=== PATIENT | male | born 1985 | race Caucasian/White ===

== ENCOUNTER → 2020-06-07 07:55 | Outpatient (CLI) | payer OTHER, SELFPAY ==
--- NOTE | ~2020-06-07 | US_ITS ---
EXAMINATION: US abdomen limited DATE: 06/07/2020 08:19 INDICATION: Right upper quadrant pain and nausea TECHNIQUE: Multiple grayscale and Doppler ultrasound images of the abdomen were obtained. COMPARISON: None available FINDINGS: The head and and body of the pancreas are normal. The pancreatic tail is obscured by bowel gas. The liver demonstrates increased echogenicity, heterogenous echotexture, and decreased through t ransmission. No surface nodularity. Normal hepatopetal flow in the main portal vein. Hyperechoic foci in the gallbladder measure up to 5 mm and do not demonstrate posterior acoustic shadowing or enhance ment, likely polyps. There is no pericholecystic fluid or gallbladder wall thickening. The mildly dil ated common bile duct measures 7 mm. No common bile duct stone is seen. There was no sonographic Murp hy sign. IMPRESSION: 1. Mildly dilated common bile duct of unclear etiology. 2. Gallbladder polyps measuring up to 5 mm. Reviewed, dictated and finalized at location A.
== END ==
PROVIDERS: PCP Family Medicine; Visit Provider Physician Assistant
DX: R10.11 Right upper quadrant pain (principal); K82.4 Cholesterolosis of gallbladder
CPT/HCPCS: 76705

== ENCOUNTER 2020-07-26 00:30 | Outpatient (CLI) | payer OTHER, SELFPAY ==
[2020-07-26 18:12] LABS: SARS-CoV-2 RNA PCR Negative
== END 2020-07-26 00:31 | disposition home or self-care (01) ==
LOC: ANHCOVIDDT 00:30
PROVIDERS: PCP Family Medicine; Visit Provider Surgery
DX: Z01.812 Encounter for preprocedural laboratory examination (principal); Z20.828 Contact with and (suspected) exposure to other viral communicable diseases
CPT/HCPCS: 87635; C9803; U0003

== ENCOUNTER 2020-07-26 07:49 | Outpatient (CLI) | payer OTHER, SELFPAY ==
[2020-07-26 08:20] LABS: Alanine Aminotransferase 22 U/L (4-50); Albumin Level 4.7 g/dL (3.5-5.1); Alkaline Phosphatase 42 U/L (38-126); Amylase 95 U/L (30-110); Aspartate Amino Transferase 26 U/L (17-59); Bilirubin,Total 0.9 mg/dL (0.2-1.3); Lipase 238 U/L (23-300)
== END 2020-07-26 07:50 | disposition home or self-care (01) ==
LOC: ANHSURGERY 07:51
PROVIDERS: PCP Family Medicine; Visit Provider Surgery
DX: Z01.812 Encounter for preprocedural laboratory examination (principal); K81.1 Chronic cholecystitis
CPT/HCPCS: 36415; 80076; 82150; 83690; 86850; 86900; 86901

== ENCOUNTER 2020-07-28 02:41 | Day surgery (SDC) | payer OTHER, SELFPAY ==
[2020-06-29 14:00] VITALS: BMI 26.7
--- NOTE | 2020-07-27 14:46 | WPDANESEPPF ---
Anes - Initial Pre Proc Eval Procedure: Operation Date: 07/28/20 08:30 Proposed Procedures p Laparoscopic Cholecystectomy - Benji Kebede MD Date/Time: 07/27/20 14:46 Surgeon: Benji Kebede MD Pre Op Diagnosis: Chronic Cholecystitis Patient Data Age: 35 Gender: M Height: 1.93 m Weight: 99.79 kg Allergies Allergy/AdvReac Type Severity Reaction Status Date / Time No Known Allergies Allergy Unknown Unverified 07/28/20 07:36 Home Medications Medication Instructions Recorded Confirmed Type multivitamin 1 tablet PO DAILY 06/29/20 07/28/20 History Patient hx anesthesia problems: none Family hx anesthesia problems: none PMFSH Past Medical History Medical History Hyperlipidemia borderline Migraine Surgical History Surgical History H/O hernia repair Hx laparoscopic cholecystectomy Hx of tonsillectomy Family History Family History Mother Hypertension Father Family history of diabetes mellitus in first degree relative Grandparent Family history of malignant neoplasm of breast Other Cerebrovascular accident Social History Social History Smoking status: Never smoker Alcohol intake: current Drinks per week: 8 Substance use: unknown 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 Gender identity (if verbalized by the patient): Male Spiritual care concerns: No Anes - Eval Final PreProcedure Day of Procedure 07/27/20 14:46 Patient weight: overweight Heart: regular rate and rhythm Lungs: clear to auscultation and normal air movement Airway: Mallampati scale class II Neurological: alert and oriented Last oral intake: >/= 8 hours ASA classification: II Emergent: no Anesthetic plan: proceed Anesthesia type and monitoring: general ETT and standard monitoring Informed Consent: The patient's anesthetic plan and its attendant risks and benefits were discussed with the patient/family/POA. Questions were solicited and answers provided to the satisfaction of the patient/family/POA.
[2020-07-28] VITALS (8 sets, daily range): BP systolic 109–127; BP diastolic 68–86; PULSE 46–67; RESP 13–22; TEMP 36.2–36.4; O2SAT 98–100
--- NOTE | 2020-07-28 06:42 | PM.SD ---
Same Day Admit/Disch: HPI History of Present Illness Chief complaint: Chronic Cholecystitis Narrative: Ernst Coreas is a 35 year old male With complaints of epigastric and right upper quadrant abdominal pain that comes on particularly after eating greasy foods or drinking beer or wine. He has had the symptoms for over 2 years but in the last few months they have become much worse. In May he had an ultrasound which suggested several gallbladder polyps. He also has a very significant family history of gallbladder disease in both his parents, multiple siblings and his grandparents. He is taken to surgery today for laparoscopic cholecystectomy for chronic cholecystitis. 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 Gender identity (if verbalized by the patient): Male Spiritual care concerns: No Same Day Admit/Disch: Med Pre-admit Medications Home Medications Medication Instructions Recorded Confirmed Type multivitamin 1 tablet PO DAILY 06/29/20 07/28/20 History hydrocodone-acetaminophen 1 - 2 tablet PO Q6H PRN #7 tablet 07/28/20 Rx ketorolac 10 mg PO Q6H 4 Days #16 tablet 07/28/20 Rx Exam Const: General: comfortable, no acute distress, alert and awake HENMT: Head: normocephalic and atraumatic Mouth: Yes Normal oral and palatal mucosa present Eyes: Conjunctivae: conjunctivae normal Pupils: Equal, round and reactive pupils present EOM: EOMs intact bilaterally Neck: Neck: normal visual inspection, no lymphadenopathy and nontender Resp: Effort & Inspection: normal respiratory effort Auscultation: clear to auscultation bilaterally Cardio: Rate: regular rate Rhythm: regular rhythm Heart sounds: no gallops, no murmurs and no rubs GI: Inspection: non-distended GI Palp: Yes Soft to palpation, No Tenderness to palpation present (GI), No Hepatomegaly present and No Splenomegaly present Skin: Lesions: no lesions Rashes: no rashes Neuro: General: no focal motor deficits and CN's II-XI intact bilaterally Cranial nerves: Yes Equal, round and reactive pupils present, Yes Bilaterally intact EOM present, Yes facial symmetry and Yes Midline tongue present Speech: normal speech Motor exam (neuro): 5/5 motor strength present throughout and Motor abnormalities not present Extrem: General: no clubbing, cyanosis or edema and edema Psych: Affect: normal affect Thought process: Normal thought process present Insight: Good insight present (Psych) DS: Summary Time Spent with Patient Time attestation: Total time spent providing and/or coordinating discharge services: DS: Admitting Diagnosis Admitting Diagnosis Admitting Diagnosis: Chronic Cholecystitis-- Plan to proceed with laparoscopic cholecystectomy under general anesthesia as an outpatient. The procedure the risks the benefits have been discussed with the patient. All questions were answered. He understands and agrees to go ahead. DS: Discharge Diagnosis Discharge Diagnosis (1) Chronic cholecystitis: Code(s): K81.1 - Chronic cholecystitis Status: Acute Discharge Plan Discharge Patient Disposition: Home, Self-Care Discharge Instructions: 1. May shower the day after surgery over incis
--- NOTE | 2020-07-28 06:45 | WPDHPUPDATE1 ---
History and Physical Update Update Date/Time: 07/28/20 06:45 History and Physical has been reviewed, including an updated exam of the patient. There are NO changes in the patient's condition. Risks, benefits, and alternatives have been discussed and questions answered. Patient agrees to proceed with procedure.
[2020-07-28] MEDS: ACETAMINOPHEN 500 MG TABLET 1000 MG PO (07:40)
[2020-07-28] MEDS: LACTATED RINGERS 1,000 ML 30 ML IV CONT (07:44)
[2020-07-28] MEDS: KETOROLAC 15 MG/ML VIAL (*BKC) IV PUSH (07:45)
[2020-07-28] MEDS: ceFAZolin 2 GM/D5W 50 ML 2 GM/50 ML BAG IVPB (08:34)
[2020-07-28] MEDS: BUPIVACAINE/EPINEPHRINE 0.5% 10 ML VIAL 20 ML INFILTRATE (09:07)
--- NOTE | 2020-07-28 09:32 | PM.PROC ---
Procedure Note - Detailed Date of procedure: 07/28/20 Pre-op diagnosis: Chronic Cholecystitis Chronic cholecystitis Post-op diagnosis: same Procedure performed: Laparoscopic cholecystectomy Description of procedure: The patient was taken to surgery and induced into general anesthesia. The abdomen was prepped and draped. Trocars were placed in the usual fashion using 0.5% Marcaine with epinephrine and applied Medical optical trocars. A 5 millimeter camera was used. The gallbladder was retracted anterosuperiorly. Traction was placed on the infundibulum. The cystic duct and cystic artery were dissected out very clearly. The gallbladder was dissected off the liver at its lower 3rd. Critical view was achieved. We securely clipped and divided the cystic duct and cystic artery. The gallbladder was then further retracted so that the peritoneal attachments to the liver could be divided. Once the gallbladder was freed entirely, it was placed in an Endo-Catch bag and retrieved through the 10 11 epigastric trocar site. The epigastric trocar was then replaced. We reviewed the right upper quadrant. All looked good with no evidence of bleeding or bile leakage. We evacuated CO2 and removed the trocar sleeves. Skin wounds were closed with subcuticular 4 O Monocryl skin suture. The wounds were dressed with Exofin surgical adhesive. Patient was awakened and taken to recovery in good condition. Sponge and needle counts were correct x2. Anesthesia: GETA and local (0.5% Marcaine with epinephrine) Surgeon: Benji Kebede MD Tab Cutting Machine Operator: Francis Merchant Estimated blood loss (mL): 5 Drains: No Packing: No Pathology: yes (Gallbladder) Complications: None Condition: stable Disposition: PACU Findings: Minimal chronic inflammation, no gallstones noted. No biliary ductal dilatation, no liver abnormalities.
[2020-07-28] MEDS: fentaNYL CITRATE INJ (*CRX) 100 MCG/2 ML VIAL 25 MCG IV PUSH ×2 (10:07→10:13)
[2020-07-28] MEDS: oxyCODONE HCL (*CRX) 5 MG TAB IR PO (10:51)
== END 2020-07-28 11:25 | disposition home or self-care (01) ==
PROVIDERS: PCP Family Medicine; Visit Provider Surgery
PROC: 0FT44ZZ Resection of Gallbladder, Percutaneous Endoscopic Approach (ICD-10-PCS; CPT 47562; principal; 2020-07-28 08:30)
DX: K81.1 Chronic cholecystitis (principal)
CPT/HCPCS: 47562; 88304; A9270; C1713; J0690; J1100; J1885; J2250; J2405; J2704; J2710; J3010; J7030; J7120

== ENCOUNTER 2024-10-23 12:33 | Emergency (ER) | payer OTHER, SELFPAY ==
[2024-10-23 12:46] VITALS: BP 133/105; PULSE 104; RESP 16; TEMP 37.7; O2SAT 99
--- NOTE | 2024-10-23 13:23 | ED.URI ---
HPI - URI/Sore Throat General Chief Complaint: Upper Respiratory Infection Stated Complaint: cold/flu symtoms Source: patient and RN notes reviewed Mode of arrival: ambulatory Limitations: no limitations History of Present Illness HPI Narrative: 39-year-old male presented for complaint of sore throat, body aches, sinus pressure/congestion, cough, fever/chills. Onset 2 days. Denies sob, wheezing, n/v/d. Taking Sudafed and ibuprofen for symptoms. MD elicited complaint: cough Related Data Home Medications ?Medication ?Instructions ?Recorded ?Confirmed ?Last Taken ?Type multivitamin 1 tablet PO DAILY 06/29/20 08/09/20 3 Days Ago History ~07/25/20 Allergies Allergy/AdvReac Type Severity Reaction Status Date / Time No Known Allergies Allergy Unknown Verified 08/09/20 13:21 Review of Systems Review of Systems: CONSTITUTIONAL: Endorses malaise, chills, sweats, fever EYES: Denies visual changes, redness, or discharge ENT: Reports rhinorrhea, congestion, otalgia, sore throat CARDIOVASCULAR: Denies chest pain, palpitations, edema RESPIRATORY: Reports cough, post nasal drainage. Denies dyspnea GASTROINTESTINAL: Denies abdominal pain, nausea, vomiting, diarrhea MUSCULOSKELETAL: Endorses myalgia PMFSH Past Medical History Medical History Hyperlipidemia borderline Migraine Surgical History Surgical History Hx laparoscopic cholecystectomy 07/28/2020 H/O hernia repair Hx of tonsillectomy Family History Family History Mother Hypertension Father Family history of diabetes mellitus in first degree relative Grandparent Family history of malignant neoplasm of breast Other Cerebrovascular accident Social History Social History Smoking status: Never smoker Alcohol intake: current Drinks per week: 8 Substance use: unknown Living arrangements: with family Occupation/Education: occupation 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 TM pearly [place]brook with dull light reflex bilaterally; no tragal tenderness. Oropharynx not erythematous without lesions or exudate, tonsils absent; no drooling, no hoarseness, no trismus, uvula midline. No tripod positioning, muffled voice, soft palate or pharyngeal wall bulging NECK: Supple. No lymphadenopathy CHEST: Clear to auscultation, breath sounds equal. HEART: Regular rate and rhythm. No murmur heard. SKIN: Warm, dry, no rash. NEURO: Alert and oriented x3. PSYCH: Normal mood and affect Course Course Emergency Course: Patient is aware of diagnosis, understands and agrees to treatment plan. Anticipatory guidance given. Patient agrees to follow-up as directed and is aware of reasons to seek care at the emergency department. Portions of this record may have been created with voice recognition software Level of Care: Express Care Visit Vital Signs Vital signs: Vital Signs Temperature 100 F H 10/23/24 12:46 Pulse Rate 104 H 10/23/24 12:46 Respiratory Rate 16 10/23/24 12:46 Blood Pressure 133/105 H 10/23/24 12:46 Pulse Oximetry 99 10/23/24 12:46 Temperature 100 F H 10/23/24 12:46 Pulse Rate 104 H 10/23/24 12:46 Respiratory Rate 16 10/23/24 12:46 Blood Pressure 133/105 H 10/23/24 12:46 Pulse Oximetry 99 10/23/24 12:46 reviewed MDM - URI/Sore Throat MDM Narrative Medical decision making narrative: Positive flu. Discussed physical exam findings. Advised supportive measures and signs/symptoms to go to the ER. Pt is appropriate for outpt treatment and f/u. Differential Diagnosis Differential diagnosis: Likely upper respiratory infection, sinusitis and viral infection Discharge Plan Discharge Clinical Impression: Influenza Patient Disposition: Home, Self-Care Condition: Stable Instructions: Influenza (ED) Additional Instructions: Influenza positive You should avoid crowds until you are fever free for 24 hours without the use of fever reducing medications, or the symptoms are improved Rest. Drink plenty of fluids. Tylenol 1000mg every 8 hours as needed for pain/fever Recommend Flonase spray and Zyrtec (or Claritin/Lisette) for sinus pressure/congestion over the counter Cough syrup may cause drowsiness; avoid driving or take it at night time. Follow up with your primary care provider as needed Go to the ER for worsening symptoms or concerns Patient Language: [place] Prescriptions: No Action multivitamin Tablet 1 tablet PO DAILY Follow-up/Referrals: Cr,DAYRON Saini [Primary Care Provider] - Time of Disposition: 13:30
[2024-10-23 13:28] LABS: EDCOVIDSCREEN Negative (Negative); EDINFLUASCREEN Positive (Negative); EDINFLUBSCREEN Negative (Negative); EDSTREPNEGPOS1 Negative (Negative)
== END 2024-10-23 13:34 | disposition home or self-care (01) ==
PROVIDERS: Emergency Provider Nurse Practitioner Family; PCP Nurse Practitioner Family
DX: J10.1 Influenza due to other identified influenza virus with other respiratory manifestations (principal); Z20.822 Contact with and (suspected) exposure to COVID-19
CPT/HCPCS: 87081; 87426; 87804; 87880; 99213; G0463